=== PATIENT | female | born 1950 | race Caucasian/White ===

== ENCOUNTER 2017-05-23 08:12 | Day surgery (SDC) | payer MEDICARE, OTHER ==
[~2017-05-23] VITALS: Ht 163.8 cm; Wt 129.0 kg
[~2017-05-23 08:12] MED LIST: LIDOcaine 1% 30ml vial SQ STA
[2017-05-23] MEDS ORDERED: normal saline 1000ml 1,000 ML IV PRN (08:40)
[2017-05-23] MEDS ORDERED: albumin (human) 25% 100 ML IV solution IV PRN (08:40)
[2017-05-23 08:59] VITALS: BP 159/84
[2017-05-23] MEDS ORDERED: LIDOcaine 1% 30ml vial SQ STA (09:24)
[2017-05-23 09:25] VITALS: BP 161/87
[2017-05-23 09:40] VITALS: BP 177/89
[2017-05-23 09:59] LABS: PROTHROMBIN TIME 10.3 SECONDS (9.0-12.0)
[2017-05-23 10:00] VITALS: BP 149/66
[2017-05-23 10:15] VITALS: BP 141/84
[2017-05-23 11:12] LABS: GLUCOSE,BODY FLUID 25 MG/DL; LDH,BODY FLUID 932 U/L; TOTAL PROTEIN,BODY FLUID 6.3 G/DL
[2017-05-23 11:25] VITALS: BP 141/84
[2017-05-23 11:56] LABS: LYMPHOCYTES,BODY FLUID 85 %; MONOCYTES,BODY FLUID 13 %; NEUTROPHILS,BODY FLUID 2 %
[2017-05-23 11:58] LABS: BF RBC COUNT 36000 /CU MM; BF WBC COUNT 2080 /CU MM (0-1000); BFAPPEAR CLOUDY; BFCOLOR RED; BFVOLUME 49 ML
== END 2017-05-23 11:25 | disposition home or self-care (01) ==
LOC: SSTAY O 08:12
PROVIDERS: ATTEND Radiology Vascular & Interventional Radiology
DX: C76.2 Malignant neoplasm of abdomen (principal); R18.8 Other ascites; Z79.899 Other long term (current) drug therapy; Z88.8 Allergy status to other drugs, medicaments and biological substances
CPT/HCPCS: 36415; 49083; 82378; 82945; 83615; 84157; 85610; 87070; 89051; A6257; J3490; J7030; P9047; 88108; 88305; 88341; 88342; A6258

== ENCOUNTER 2019-02-16 19:19 | Emergency (ER) | payer MEDICARE, OTHER ==
[~2019-02-16] VITALS: Ht 162.6 cm; Wt 134.0 kg
[~2019-02-16 19:19] MED LIST changes: +ALPR-624 PO; +CHOL400T14 PO; +CYAN250010; -LIDOcaine 1% 30ml vial SQ STA; +LORA1TAB PO; +MULT1TAB74 PO; +OMEP20CA11 PO; +PARO-62 PO
[2019-02-16 20:23] LABS: EOSINOPHILS % (AUTO) 0.3 % (0-6); LYMPHOCYTES # (AUTO) 0.6 X10'3 (1.1-4.8); MEAN PLATELET VOLUME 8.8 FL (7.4-10.4); MONOCYTES # (AUTO) 0.5 X10'3 (0-0.9); NEUTROPHILS # (AUTO) 1.7 X10'3 (1.8-7.7); NEUTROPHILS % (AUTO) 60.6 % (42-75)
[2019-02-16 20:25] LABS: BASOPHILS % (AUTO) 0.1 % (0-1); HEMATOCRIT 34.4 % (35.0-45.0); HEMOGLOBIN 11.4 g/dl (12.0-16.0); LYMPHOCYTES % (AUTO) 20.3 % (21-51); MEAN CORPUSCULAR HEMOGLOBIN 32.7 PG (27.0-31.0); MEAN CORPUSCULAR HGB CONC 33.3 g/dL (33.0-36.5); MEAN CORPUSCULAR VOLUME 98.4 FL (78-98); MONOCYTES % (AUTO) 18.7 % (2-12); PLATELET COUNT 92 X10'3 (140-440); RED BLOOD COUNT 3.49 X10'6 (4.20-5.60); RED CELL DISTRIBUTION WIDTH 17.1 % (11.5-14.5); WHITE BLOOD COUNT 2.8 X10'3 (4.5-11.0)
[2019-02-16 20:35] LABS: ALANINE AMINOTRANSFERASE 35 U/L (12-78); ALBUMIN 3.3 G/DL (3.4-5.0); ALBUMIN/GLOBULIN RATIO 0.6 (1.1-1.5); ALKALINE PHOSPHATASE 105 IU/L (46-116); ANION GAP 11 (8-16); ASPARTATE AMINO TRANSFERASE 22 U/L (10-37); BILIRUBIN,TOTAL 0.5 MG/DL (0.1-1.0); BLOOD UREA NITROGEN 19 MG/DL (7-18); BUN/CREATININE RATIO 16.7 (6.6-38.0); CALCIUM 9.6 MG/DL (8.5-10.1); CHLORIDE 98 MMOL/L (99-107); CREATININE 1.14 MG/DL (0.40-0.90); GLUCOSE 128 MG/DL (70-104); POTASSIUM 3.7 MMOL/L (3.5-5.1); SODIUM 139 MMOL/L (135-145); TOTAL CARBON DIOXIDE 29.7 MMOL/L (24-32); TOTAL PROTEIN 8.4 G/DL (6.4-8.2); eGFR 47 ML/MIN
[2019-02-16 20:56] LABS: TOTAL CELLS COUNTED 100
[2019-02-16 20:57] LABS: ANISOCYTOSIS 1+; LARGE PLATELETS FEW; PLATELET ESTIMATE DECREASED; TOXIC GRANULATION 1+
[2019-02-16 21:20] LABS: LIPASE < 50 U/L (73-393)
[2019-02-16] MEDS ORDERED: famotidine/PF 10 mg/ml inj IV ONE (21:20)
[2019-02-16] MEDS ORDERED: morphine 4 MG/ML inj SYRINge IV ONE (21:20)
[2019-02-16] MEDS ORDERED: orphenadrine citrate 60mg/2ml inj. IM ONE (21:20)
[2019-02-16] MEDS ORDERED: ondansetron/PF 4mg/2ml inj IV ONE (21:20)
[2019-02-16] MEDS ORDERED: LIDOcaine Viscous 15ml cup PO ONE (21:20)
[2019-02-16] MEDS ORDERED: normal saline 1000ml 1,000 ML IV ONE (21:20)
[2019-02-16] MEDS ORDERED: mag hydrox/Alum hydrox/simeth 30ml oral suspension PO ONE (21:20)
[2019-02-16] MEDS ORDERED: ketorolac trometh. 30mg/ml inj. IV ONE (21:25)
[2019-02-16] MEDS ORDERED: sucralfate 1gm/10ml UD suspension PO ONE (21:25)
[2019-02-16] MEDS ORDERED: proCHLORperazine 10 MG/2 ml inj IV ONE (22:00)
--- NOTE | 2019-02-16 22:00 | NUR ---
PATIENT TOOK SECOND SIP OF GI COCKTAIL AND VOMITED 1200 ML OF DARK GREEN BILE
[2019-02-16] MEDS ORDERED: LORazepam 2 mg/ml vial IV ONE (22:05)
[2019-02-16] MEDS ORDERED: pantoprazole 40 MG vial IV ONE (23:30)
[2019-02-17] MEDS ORDERED: PANT-47 PO (01:07)
[2019-02-17] MEDS ORDERED: ONDA8TAB6 PO (01:07)
[2019-02-17] MEDS ORDERED: PHE25R PR (01:07)
[2019-02-17] MEDS ORDERED: HYDR-3965 PO (01:07)
[2019-02-17] MEDS ORDERED: LORA-269 PO (01:07)
[2019-02-17 01:54] VITALS: BP 108/78
== END 2019-02-17 01:30 | disposition home or self-care (01) ==
LOC: ER 19:19
DX: K56.600 Partial intestinal obstruction, unspecified as to cause (principal); R11.2 Nausea with vomiting, unspecified; K59.00 Constipation, unspecified; K21.9 Gastro-esophageal reflux disease without esophagitis; G89.29 Other chronic pain; Z88.2 Allergy status to sulfonamides; Z79.899 Other long term (current) drug therapy
CPT/HCPCS: 36415; 74176; 80053; 83605; 83690; 84145; 84484; 85025; 85610; 96361; 96372; 96374; 96375; 99284; C9113; J0780; J1885; J2060; J2270; J2360; J2405; J3490; J7030

== ENCOUNTER 2019-03-25 12:51 | Day surgery (SDC) | payer MEDICARE, OTHER ==
[2019-03-25] VITALS (10 sets, daily range): BP systolic 122–151; BP diastolic 72–97
[~2019-03-25] VITALS: Ht 162.6 cm; Wt 122.0 kg
[~2019-03-25 12:51] MED LIST changes: +LORA-269 PO; +ONDA8TAB6 PO; +PANT-47 PO; +PHE25R PR
[2019-03-25] MEDS ORDERED: albumin 25% 100mL bottle x 1 IV PRN (13:15)
[2019-03-25] MEDS ORDERED: normal saline 1000ml 1,000 ML IV PRN (13:15)
[2019-03-25] MEDS ORDERED: ONDA8TAB12 PO (13:50)
[2019-03-25] MEDS ORDERED: LORA-269 PO (13:50)
[2019-03-25] MEDS ORDERED: TEMA15CA5 PO (13:50)
[2019-03-25] MEDS ORDERED: IBUP-24 PO (13:50)
[2019-03-25] MEDS ORDERED: DIPH1TAB PO (13:50)
[2019-03-25] MEDS ORDERED: MORP30TA PO (13:50)
[2019-03-25] MEDS ORDERED: MORP10SO22 PO (14:06)
--- NOTE | 2019-03-25 15:18 | NUR ---
Problems reprioritized. Patient report given, questions answered & plan of care reviewed with Sue ANDREW.
[2019-03-25] MEDS ORDERED: fentaNYL/PF 50MCG/1 ML 2ML syringe IV PRN (15:25)
[2019-03-25] MEDS ORDERED: LIDOcaine 1% (10mg/ml) 2ml vial SQ ONE (15:25)
[2019-03-25] MEDS ORDERED: midazolam 2 mg/2 ml injection IV PRN (15:25)
[2019-03-25] MEDS ORDERED: midazolam 2 mg/2 ml injection ONE ×4 (15:29→17:04)
[2019-03-25] MEDS ORDERED: glucagon, human recombinant 1mg kit ONE (15:29)
[2019-03-25] MEDS ORDERED: LIDOcaine 1%/PF 5ML 10 MG/ML VIAL ONE ×2 (15:29→16:34)
[2019-03-25] MEDS ORDERED: fentaNYL/PF 50MCG/1 ML 2ML syringe ONE ×4 (15:29→17:04)
[2019-03-25] MEDS ORDERED: iohexol 300 MG/1 ML 50ml polymer ONE ×2 (15:32→17:03)
[2019-03-25] MEDS ORDERED: cefazolin/dext.iso 2gm/100ml 100 ML IV SCH (16:00)
[2019-03-25] MEDS ORDERED: ondansetron/PF 4mg/2ml inj ONE (16:31)
[2019-03-25] MEDS ORDERED: zinc oxide ointment 30gm tube TP PRN (17:30)
[2019-03-25] MEDS ORDERED: heparin sodium, porcine/PF 100unit/ml 5ML syringe IV ONE (19:20)
[2019-03-26] MEDS ORDERED: cefazolin/dext.iso 2gm/50ml 50 ML IV SCH
== END 2019-03-25 21:10 | disposition home or self-care (01) ==
LOC: SSTAY O 12:51
PROVIDERS: ATTEND Radiology Vascular & Interventional Radiology
DX: C54.1 Malignant neoplasm of endometrium (principal); R18.0 Malignant ascites; Z88.2 Allergy status to sulfonamides; Z79.899 Other long term (current) drug therapy
CPT/HCPCS: 49083; 49440; 99152; 99153; C1713; C1729; C1894; J1610; J1642; J2250; J2405; J3010; J7030; Q9967; 76942; B4087